=== PATIENT | female | born 1965 | race Caucasian/White ===

== ENCOUNTER 2025-01-20 12:40 | Outpatient (OUT) | payer MEDICARE, SELFPAY ==
--- OUTSIDE RECORDS SUMMARY | 2010-08-06 09:05 | XMS_ITS | Encounter Summary ---
Author Organization [facility] Address [address], [address] [place] [address] Care Team Providers Care Family Psychologist Name Role Phone Unavailable Primary Care Provider Unavailabl e Encounter Details Date Type Department Care Team (Late st Contact Info) Description 08/06/2010 8:05 AM [place] [address] Social History Tobacco Use Types Packs/Day Years Used Date Smoking Tobacco: Never Smokeless Tobacco: Never Alcohol Use Standard Drinks/Week Comments Yes 0 (1 standard drink = 0.6 oz pur e alcohol) social PHQ-2 Answer Date Recorded PHQ-9 Total Score 0 01/09/2023 Comments No Sex and Gender Information Value Date Recorded Sex Assigned at Not on file Legal Sex Female 3:56 PM EST Gender Identity Not on file Sexual Orientation Not on file COVID-19 Exposure Response Date Recorded In the last month, have you been in contact with someone who was confirmed or suspected to have Coronavirus / COVID-19? No / Unsure 07/02/2021 2:40 PM EST documented as of this encounter Plan of Treatment Upcoming Encounters Date Type Department Care Team (Late st Contact Info) Description 02/22/2025 2:00 PM EDT Office Visit [facility] A department of [facility] [address], [place] [address] Sarah Ambrosio, TRACK LAYING MACHINE OPERATOR - WEBBING TACKER [address] [place] [address] 1 m documented as of this encounter Visit Diagnoses Not on filedocumented in this encounter
--- OUTSIDE RECORDS SUMMARY | 2025-01-12 13:45 | XMS_ITS | Encounter Summary ---
Author Organization [facility] Address [address], [address] [place] [address] Care Team Providers Care Excavation Laborer Name Role Phone Unavailable Primary Care Provider Unavailabl e Reason for Visit * Reason Comments Hand Pain both Encounter Details Date Type Department Care Team (Latest Contact Info) Description 01/12/2025 1:45 PM EDT Office Visit [facility] A department of [facility] [address] [place] [address] Sarah Ambrosio, REGIONAL VICE PRESIDENT LIFE SALES - [facility] [address] [place] [address] Chronic prescription opiate use (Primary Dx); Chronic pain of multiple joints; Pain management; Psoriatic arthritis (HCC); Primary osteoarthritis of both knees; Rheumatoid arthritis involving both hands with positive rheumatoid factor (HCC) Social History Tobacco Use Types Packs/Day Years Used Date Smoking Tobacco: Never Smokeless Tobacco: Never Tobacco Cessation:Counseling Given: Not Answered Alcohol Use Standard Drinks/Week Comments Yes 0 (1 standard drink = 0.6 oz pur e alcohol) social PHQ-2 Answer Date Recorded PHQ-9 Total Score 0 01/09/2023 Comments No Sex and Gender Information Value Date Recorded Sex Assigned at Not on file Legal Sex Female 3:56 PM EST Gender Identity Not on file Sexual Orientation Not on file documented as of this encounter Last Filed Vital Signs Vital Sign Reading Time Taken Comments Blood Pressure 102/62 01/12/2025 1:52 PM EDT Pulse 77 01/12/2025 1:52 PM EDT Temperature - - Respiratory Rate 12 01/12/2025 1:52 PM EDT Oxygen Saturation 97% 01/12/2025 1:52 PM EDT Inhaled Oxygen Concentration - - Weight 85.3 kg (188 lb) 01/12/2025 1:52 PM EDT Height 172.7 cm (5' 8 ) 01/12/2025 1:52 PM EDT Body Mass Index 28.59 01/12/2025 1:52 PM EDT documented in this encounter Progress Notes * Sarah Ambrosio, REGIONAL VICE PRESIDENT LIFE SALES - ARMAMENT INSTALLER - 01/13/2025 3:50 PM EDT [facility] [address] [place]. [address] Patient Name: Jackeline Rivera Encounter Date: 01/13/2025 SUBJECTIVE: Jackeline Rivera is a 59 y.o., female being seen today regarding Chief Complaint Patient presents with Hand Pain both and routine medication management. History of Present Illness The patient presents for pain management. She reports that her current medication, Percocet, is effectively managing her pain. However, she experiences discomfort regardless of her activities. Functionality Assessment & Goals: On a scale of 0 (Does not Interfere) to 10 (Completely Interferes) Which number describes how during the past week pain has interfered with the following: A. General Activity: 10 B. Mood: 10 C. Walking Ability: 9 D. Normal Work (Includes both work outside the home and housework): 10 E. Relations with Other People: 8 F. Sleep: 10 G. Enjoyment of Life: 10 2. Patient prefers to Take their Pain Medications: [x] On a regular basis [] Only when necessary [] Does not take pain medications 3. What are the Patient's Goals/ Expectations for Visiting Pain Management? [] Learn about my pain [] Physical Therapy [] Receive Injections [] Deal with Anxiety and Stress [x] Receive Medication [] Treat Depression [] Treat Sleep [] Treat Opioid Dependence/ Addiction Current Pain Assessment: 01/12/2025 1:56 PM AMB PAIN ASSESSMENT Location of Pain Hand Location Modifiers Right;Left Severity of Pain 8 Quality of Pain Throbbing;Sharp;Dull Duration of Pain Persistent Frequency of Pain Constant Aggravating Factors Bending;Stretching;Straightening;Exercise;Kneeling;Squatting;Standing;Walking;St airs Limiting Behavior Yes Relieving Factors Rest Result of Injury No Work-Related Injury No Are there other pain locations you wish to document? No Current Medications & Allergies: Current Outpatient Medications Medication Instructions amoxicillin (AMOXIL) 500 MG capsule Azelastine HCl 137 MCG/SPRAY SOLN baclofen (LIORESAL) 10 MG tablet calcium carbonate 600 mg, 2 TIMES DAILY WITH MEALS clindamycin (CLEOCIN) 300 MG capsule cyanocobalamin 1000 MCG tablet gabapentin (NEURONTIN) 300 mg, Oral, Nightly, Intended supply: 30 days guaiFENesin (MUCINEX) 600 mg, EVERY 12 HOURS PRN hydroxychloroquine (PLAQUENIL) 200 MG tablet DAILY ibuprofen (ADVIL;MOTRIN) 600 MG tablet No dose, route, or frequency recorded. medical marijuana 1 Dose, PRN metoprolol tartrate (LOPRESSOR) 6.25 mg, 2 TIMES DAILY montelukast (SINGULAIR) 10 MG tablet nitroGLYCERIN (NITROSTAT) 0.4 mg, EVERY 5 MIN PRN spironolactone (ALDACTONE) 100 mg, DAILY venlafaxine (EFFEXOR XR) 37.5 MG extended release capsule Allergies Allergen Reactions Cephalexin Itching Duloxetine Diarrhea and Other (See Comments) Flu like symptoms Duloxetine Hcl Diarrhea Fluticasone Other (See Comments) Dry lips and cracking Jean skin around nose Ipratropium-Albuterol Pt unsure of reaction Tocilizumab Adhesive Tape Rash Celecoxib Other (See Comments) and Rash Body aches Ciprofloxacin Nausea Only and Rash Body aches Diclofenac Nausea Only and Rash Ipratropium-Albuterol Rash Meloxicam Hives, Itching and Rash Morphine Nausea And Vomiting Parlodel [Bromocriptine] Rash Sodium Tetradecyl Sulfate Rash Sulfa Antibiotics Rash Sulfamethoxazole-Trimethoprim Nausea Only and Rash Wound Dressing Adhesive Rash Review of Systems: Review of Systems Constitutional: Positive for fatigue, fever (intermittent. possible lupus, never diagnosed) and unexpected weight change (weight loss). HENT: Positive for sore throat. Respiratory: Positive for cough. Cardiovascular: History CHF Gastrointestinal: Negative for constipation and diarrhea. Genitourinary: Negative for difficulty urinating. Musculoskeletal: Positive for arthralgias, gait problem, joint swelling and myalgias. Joint pain Skin: Negative. Allergic/Immunologic: Negative for food allergies. Neurological: Positive for weakness and numbness. Hematological: Does not bruise/bleed easily. Psychiatric/Behavioral: Positive for agitation, decreased concentration and sleep disturbance. OBJECTIVE: Vitals: 01/12/25 1352 BP: 102/62 Pulse: 77 Resp: 12 SpO2: 97% PHYSICAL EXAM Physical Exam Vitals reviewed. Constitutional: General: She is awake. She is not in acute distress. Appearance: Normal appearance. She is well-developed and well-groomed. She is not ill-appearing, toxic-appearing or diaphoretic. Interventions: She is not intubated. HENT: Head: Normocephalic and atraumatic. Right Ear: External ear normal. Left Ear: External ear normal. Eyes: General: Lids are normal. Cardiovascular: Rate and Rhythm: Normal rate. Pulmonary: Effort: Pulmonary effort is normal. No tachypnea, bradypnea, accessory muscle usage, prolonged expiration, respiratory distress or retractions. She is not intubated. Abdominal: Palpations: Abdomen is soft. Skin: General: Skin is warm and dry. Capillary Refill: Capillary refill takes less than 2 seconds. Coloration: Skin is not ashen, jaundiced or pale. Findings: No rash. Nails: There is no clubbing. Neurological: Mental Status: She is alert and oriented to person, place, and time. GCS: GCS eye subscore is 4. GCS verbal subscore is 5. GCS motor subscore is 6. Cranial Nerves: No cranial nerve deficit. Psychiatric: Attention and Perception: Attention and perception normal. Mood and Affect: Mood and affect normal. Speech: Speech normal. Behavior: Behavior is cooperative. Cognition and Memory: Cognition normal. Judgment: Judgment normal. ASSESSMENT: ICD-10-CM 1. Chronic prescription opiate use Z79.891 2. Chronic pain of multiple joints M25.50 DISCONTINUED: oxyCODONE-acetaminophen (PERCOCET) 5-325 MGper tablet G89.29 3. Pain management R52 4. Psoriatic arthritis ([facility]) L40.50 5. Primary osteoarthritis of both knees M17.0 6. Rheumatoid arthritis involving both hands with positive rheumatoid factor ([facility]) M05.741 M05.742 I have reviewed the chief complaint and the history of present illness, vitals and all subjective documentation by [facility] clinical staff. PLAN: Jackeline Rivera is here for a recheck of chronic pain and medication management. Assessment & Plan 1. Pain management. - Reports that Percocet is effectively managing her pain. - Physical activity includes home renovation, which may contribute to pain levels. The patient shows no evidence of misuse or diversion of medications and denies use of alcohol or illegal substances. A urine drug screen has been appropriate as shown with the most recent screen. Controlled Substance Monitoring: Acute and Chronic Pain Monitoring: RX Monitoring Periodic Controlled Substance Monitoring 01/12/2025 2:14 PM No signs of potential drug abuse or diversion identified.;Obtaining appropriate analgesic effect of treatment. SURESH Carey CNP Pain Management [facility] High Complexity Medical Decision Making-Involving chronic use of controlled substance which requires close monitoring for proper use and watching out for misuse and/or addictive behaviors. [place] routinely checked prior to any refills of a controlled substance. Monitoring involves random UDS and monitoring UDS. The patient (or guardian, if applicable) and other individuals in attendance with the patient were advised that Artificial Intelligence will be utilized during this visit to record, process the conversation to generate a clinical note, and support improvement of the AI technology. The patient (or guardian, if applicable) and other individuals in attendance at the appointment consented to the use of AI, including the recording. documented in this encounter Plan of Treatment Upcoming Encounters Date Type Department Care Team (Late st Contact Info) Description 02/22/2025 2:00 PM EDT Office Visit [facility] A department of [facility] [address] [place] [address] Sarah Ambrosio APRN - CNP [address] [place] [address] 1 m documented as of this encounter Visit Diagnoses Diagnosis Chronic prescription opiate use- Primary Chronic pain of multiple joints Pain in joint, multiple sites Pain management Other specified rehabilitation procedure Psoriatic arthritis (HCC) Psoriatic arthropathy Primary osteoarthritis of both knees Primary localized osteoarthrosis, lower leg Rheumatoid arthritis involving both hands with positive rheumatoid factor (HCC) documented in this encounter
--- OUTSIDE RECORDS SUMMARY | 2025-01-20 12:49 | XMS_ITS | Clinical Summary ---
Author Organization [facility] Address [address] [place] [id number] Care Team Providers Care Healthcare Recruiter Name Role Phone (Historical), No Pcp Primary Care Provider Unava ilable Allergies Active Allergy Reactions Criticality Noted Date Comments Bromocriptine Rash 10/17/2008 Diclofenac Rash 10/17/2008 Celecoxib Rash 10/17/2008 Ciprofloxacin Rash 10/17/2008 Ipratropium-Albuterol Rash 10/17/2008 Fluticasone Propionate Rash 10/17/2008 no latex allergy [Other] 10/17/2008 Medications HYDRALAZINE 25 MG TAB take one(1) tablet three (3) times daily 90 2 10/31/2008 Active potassium chloride(K-DUR 20 MEQ TAB) Take one(1) tablet daily. 5 0 01/11/2009 Active doxazosin mesylate(CARDURA 2 MG TAB)Indications:U nspecified essential hypertension Take two (2) tablet two(2) times daily. 120 5 02/01/2009 Active doxazosin mesylate(CARDURA 2 MG TAB)Indications:U nspecified essential hypertension Take one(1) tablet two(2) times daily. 60 5 03/08/2009 Active spironolactone(AL DACTONE 50 MG TAB)Indications:U nspecified essential hypertension Take one(1) tablet two(2) times daily. 200 3 03/08/2009 Active Active Problems Problem Noted Date Diagnosed Date Mitral valve disorders(424.0) 10/19/2008 Unspecified essential hypertension 10/19/2008 PMH - PAST MEDICAL HISTORY OF 10/19/2008 Overview (10/19/2008): h/o liver cyst and inflammation Family History Medical History Relation Comments Hepatitis [Other] Brother Living - age 4 9 Heart Father at age 70 - CHF, HTN Hypertension Mother Living -age 71 - carotid ASO, glaucoma Stroke Other Great grandmothe r with brain aneurysm Stroke Sister Living - age 46 - h/o brain aneurysm and CVA Thyroid Sister Hyperactive thyr oid Relation Status Comments Brother Father Mother Other Sister Social History Tobacco Use Types Packs/Day Years Used Date Smoking Tobacco: Never Alcohol Use Standard Drinks/Week Comments Yes 0 (1 standard drink = 0.6 oz pur e alcohol) 3-4 drinks per month Comments No Sex and Gender Information Value Date Recorded Sex Assigned at Not on file Legal Sex Female 8:19 AM EST Gender Identity Not on file Sexual Orientation Not on file Last Filed Vital Signs Vital Sign Reading Time Taken Comments Blood Pressure 146/86 01/11/2009 1:47 PM EDT Pulse 100 01/11/2009 1:47 PM EDT Temperature - - Respiratory Rate - - Oxygen Saturation - - Inhaled Oxygen Concentration - - Weight 93.5 kg (206 lb 3.2 oz) 01/11/2009 1:47 P M EDT Height 171 cm (5' 7.32 ) 10/19/2008 12:41 PM EDT Body Mass Index 31.99 10/19/2008 12:41 PM EDT Plan of Treatment Health Maintenance Due Date Last Done Comments Anxiety Screening 12/18/1981 Depression Screening 12/18/1981 HIV Screening 12/18/1981 Hepatitis C Screening 12/18/1981 DTaP,Tdap,Td Vaccine (1 - Tdap) 12/18/1982 Cervical Cancer Screening 12/18/[address] Colonography 12/18/2008 Cologuard (FIT-DNA) 12/18/2008 Colonoscopy 12/18/2008 Colorectal Cancer Screening 12/18/2008 Fecal Occult Blood 12/18/2008 Sigmoidoscopy 12/18/2008 Diabetes Screening 10/20/2011 10/19/2008 Lipid Screening 10/19/2013 10/19/2008 Pneumococcal Vaccine: 50+ (1 of 1 - PCV) 12/18/2013 Shingrix Vaccine (1 of 2) 12/18/2013 Influenza Vaccine (#1) 2025 RSV Vaccine (1 - 1-dose 75+ series) 12/18/2038 Procedures Procedure Name Priority Date/Time Associated Diagnosis Comments COMPREHENSIVE METABOLIC PANEL Routine 10/19/2008 6:14 PM EDT Abdominal Pain Epigastric LIPID PANEL, FASTING Routine 10/19/2008 6:14 PM EDT Abdominal Pain Epigastric from Last 3 Months or Most Recently Relevant to Health Maintenance Results * (ABNORMAL) LIPID PANEL BASIC (10/19/2008 6:14 PM EDT) Triglyceride 236(H) 30 - 149 mg/dL [facility] Cholesterol, Total 227(H) 100 - 199 mg/dL [facility] HDL Cholesterol 47(L) >55 mg/dL [facility] VLDL Cholesterol 47(H) 6 - 40 mg/dL [facility] LDL Cholesterol, Calculated 133(H) 60 - 129 mg/dL [facility] Fasting Time 12 hrs [facility] TC:HDL Ratio 4.83 1.00 - 5.00 [facility] LDL:HDL Ratio 2.83 0.50 - 3.55 [facility] Non HDL Cholesterol 180(H) 90 - 159 mg/dL [facility] Blood specimen (specimen) BLOOD SPECIMEN / Unknown 10/19/2008 6:14 PM EDT us Dennise Sepulveda MD, PhD LABORATORY Final Result Performing Organization Address City/State/[facility] Co de Phone Number [facility] [address] [place] [address] * COMP METABOLIC PANEL (10/19/2008 6:14 PM EDT) Protein, Total 6.5 6.0 - 8.4 g/dL [facility] Albumin 4.3 3.5 - 5.0 g/dL [facility] Calcium 9.0 8.5 - 10.5 mg/dL [facility] Bilirubin, Total 0.7 0.0 - 1.5 mg/dL [facility] Alkaline Phosphatase 63 40 - 150 U/L [facility] AST 23 7 - 40 U/L [facility] Glucose 85 65 - 100 mg/dL [facility] BUN 10 8 - 25 mg/dL [facility] Creatinine 0.73 0.70 - 1.40 mg/dL [facility] Sodium 140 132 - 148 mmol/L [facility] Potassium 3.6 3.5 - 5.0 mmol/L [facility] Chloride 100 98 - 110 mmol/L [facility] CO2 27 23 - 32 mmol/L [facility] Anion Gap 13 0 - 15 mmol/L [facility] ALT 20 0 - 45 U/L [facility] eGFR- >60 [facility] eGFR-All Other Races >60 . [facility] Comment: eGFR (Estimated GFR) Units of measure: mL/min/1.73 meters squared eGFR is derived from the reexpressed MDRD Study equation using the following parameters: serum creatinine, age, gender and race. The creatinine assay has been calibrated to be traceable to IDMS. An eGFR <60 mL/min/1.73m2 for >3 months is consistent with chronic kidney disease. Refer to KDOQI guidelines for clinical interpretation. Blood specimen (specimen) BLOOD SPECIMEN / Unknown 10/19/2008 6:14 PM EDT Dennise Sepulveda MD, PhD LABORATORY Final Result [facility] [address] [place] [address] from Last 3 Months or Most Recently Relevant to Health Maintenance Insurance CHOICE PLUS BLUE CARD PPO OOS Care Teams Healthcare Recruiter Relationship Specialty Start Date End Date (Historical), No Pcp PCP - General 11/15/14
--- OUTSIDE RECORDS SUMMARY | 2025-01-20 12:49 | XMS_ITS | Clinical Summary ---
Author Organization [facility] Address [address] [place] [address] Care Team Providers Care Wire Harness Assembler Name Role Phone Etienne Yeboah MD Primary Care Provider [phone] Allergies Active Allergy Reactions Criticality Noted Date Comments Adhesive Rash Low 10/17/2008 Beta-Adrenergic Agents Dizziness 11/11/2023 Hypotension Bromocriptine Rash Low 10/17/2008 Candy Apple Flavor Anaphylaxis High 04/17/2023 Celecoxib Rash Low 10/17/2008 Other Reaction(s): Other (See Comments) Body aches Cephalexin Itching 02/17/2022 Ciprofloxacin 05/19/2014 Other reaction(s): other Diclofenac GI intolerance,Nause a Only,Rash Low 10/17/2008 Diltiazem Headache 03/02/2024 Duloxetine Diarrhea 02/17/2022 Fluticasone Propionate 05/19/2014 Other reaction(s): other Meloxicam Hives,Itching,Rash Low 11/13/2021 Other Reaction(s): itch/rash Morphine 02/17/2022 Other reaction(s): vomiting Sulfa (Sulfonamide Antibiotics) 05/19/2014 Other reaction(s): other Sulfamethoxazole-Trimet hoprim GI intolerance,Rash Low 07/20/2012 Tocilizumab 02/17/2022 Medications albuterol 90 mcg/actuation inhaler Inhale 2 puffs as needed by inhalation route. Active cyanocobalamin (Vitamin B-12) 1,000 mcg/mL injection Inject 1 ml intramuscularly daily for 7 days, then once weekly for 4 weeks, then once monthly. Active spironolactone (Aldactone) 100 mg tablet Take 50 mg by mouth in the morning. Active buprenorphine (Butrans) 5 mcg/hour 08/06/19 23 Active HYDROcodone-gabo taminophen ([place]) 5-325 mg tablet 08/05/19 23 Active oxyCODONE-aceta minophen (Percocet) 5-325 mg tablet 04/09/20 23 Active baclofen (Lioresal) 10 mg tablet 06/29/19 24 Active hydroxychloroqu ine (Plaquenil) 200 mg tabletIndicatio ns:Seronegative rheumatoid arthritis (CMS/HCC) Take 1 tablet every day by oral route. 90 tablet 3 10/07/19 24 Active clindamycin (Cleocin) 300 mg capsule 01/19/20 24 Active dilTIAZem CD (Cardizem CD) 120 mg 24 hr capsule 11/11/19 24 Active metoprolol tartrate (Lopressor) 25 mg tablet Take 12.5 mg by mouth two times daily. 03/03/20 24 Active magnesium glycinate 100 mg tablet Take 100 mg by mouth in the morning. Active nitroglycerin (Nitrostat) 0.4 mg SL tablet 12/28/19 24 Active arm brace (GABO Elbow Brace) miscIndications :Seronegative rheumatoid arthritis (CMS/HCC),Fibro myalgia,Hammert oe of left foot,Golfers elbow, unspecified laterality Elbow strap bilateral, apply to the elbows for tennis elbow 2 each 03/30/20 24 Active gabapentin (Neurontin) 300 mg capsule 07/27/19 25 Active azelastine (Astelin) 137 mcg (0.1 %) nasal spray 04/14/20 24 Active montelukast (Singulair) 10 mg tablet Take 10 mg by mouth in the morning. 09/14/19 25 Active amoxicillin (Amoxil) 500 mg capsule 07/25/19 25 Active abacavir (Ziagen) 20 mg/mL solution Take 8 mg/kg by mouth two times daily. 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 Nausea 03/16/2024 Urinary tract infectious disease 03/16/2024 Dyspnea on exertion 12/28/2023 NSVT (nonsustained ventricular tachycardia) 11/30 Other fatigue 12/28/2023 Palpitations 12/28/2023 Precordial pain 12/28/2023 SVT (supraventricular tachycardia) 12/28/2023 Hammertoe of left foot 09/18/2023 Fibromyalgia 01/02/2023 Rheumatoid arthritis 01/02/2023 S/P total right hip arthroplasty 12/10/2021 Chronic pain of multiple joints 06/20/2021 Primary osteoarthritis of both knees 06/20/2021 Psoriatic arthritis 06/20/2021 Rheumatoid arthritis involvi ng both hands with positive rheumatoid factor 06/20/2021 CHF (congestive heart failure) 03/14/2020 COVID-19 03/14/2020 Glaucoma 03/14/2020 Osteoporosis 05/30/2013 Endometriosis 07/26/2012 Essential hypertension 10/19/2008 Immunizations Immunization Administration Dates Next Due Influenza, seasonal, injecta ble, preservative free, 6 moonths & older 03/21/2011 Pneumococcal Polysaccharide PPV23 03/21/2011 Tdap 01/28/2016 Unspecified Sars-Cov-2 Vaccination 05/08,09/29/2020,09/26/2020,08/30,08/29/2020 Family History Medical History Relation Name Comments Drug abuse Brother 1 Asher clara Hypertension Brother 1 Asher clara Kidney disease Brother 2 Don clara Arthritis Father Jakob clara Cancer Father Jakob clara Diabetes Father Jakob clara Hearing loss Father Danforth clara Heart disease Father Jakob clara Hypertension Father Jakob clara Vision loss Father Danforth clara Arthritis Mother Gaston clara Asthma Mother Gaston clara COPD Mother Gaston clara Cancer Mother Gaston clara Hypertension Mother Gaston clara Vision loss Mother Gaston clara Stroke Sister 1 Colleen narinder Cancer Sister 2 Carlota amador Relation Name Status Comments Brother 1 Asher clara Brother 2 Don clara Father Jakob clara Mother Gaston clara Sister 1 Colleen narinder Sister 2 Carlota amador Social History Tobacco Use Types Packs/Day Years Used Date Smoking Tobacco: Never Smokeless Tobacco: Never Tobacco Cessation:Counseling Given: Not Answered Alcohol Use Standard Drinks/Week Comments Yes 0 (1 standard drink = 0.6 oz pure alcohol) Mayb 2 to 4 shots whiskey mo. Not daily PHQ-2 Answer Date Recorded Patient Health Questionnaire-2 Score 0 09/28/2024 [place] Safety & Environment Answer Date Rec orded Fear of Current or Ex-Partner Not on file Emotionally Abused Not on file 07/23/2023 Physically Abused Not on file 07/23/2023 Sexually Abused Not on file 07/23/2023 Physically or Sexually Abused Not on file Comments Unknown Sex and Gender Information Value Date Recorded Sex Assigned at Not on file Legal Sex Female 11:11 PM EDT Gender Identity Not on file Sexual Orientation Not on file Last Filed Vital Signs Vital Sign Reading Time Taken Comments Blood Pressure 102/75 09/28/2024 10:47 AM EDT Pulse 68 09/28/2024 10:47 AM EDT Temperature 36.4 C (97.6 F) 03/14/2020 2:37 PM EDT Respiratory Rate 16 05/02/2019 2:50 PM EST Oxygen Saturation 98% 06/07/2021 1:46 PM EST Inhaled Oxygen Concentration - - Weight 87.1 kg (192 lb) 09/28/2024 10:47 AM EDT Height 172.7 cm (5' 8 ) 03/30/2024 10:03 AM EDT Body Mass Index 29.19 03/30/2024 10:03 AM EDT Plan of Treatment Upcoming Encounters Date Type Department Care Team (Late st Contact Info) Description 01/27/2025 1:00 PM EDT Follow-Up [facility] Rheumatology [address] [place] [address] Sylvester Lee MD [address] [place] [address] Health Maintenance Due Date Last Done Comments CT Colonography 1963 Colonoscopy 1963 Colorectal Cancer Screening 1965 FIT-DNA 1963 FIT 1963 FOBT 1965 Medicare Annual Wellness (AWV) 1965 Sigmoidoscopy 1963 HPV/Cotest 12/18/1993 Pneumococcal Vaccine: Pediatrics (0 to 5 Years) and At-Risk Patients (6 to 64 Years) (2 of 2 - PCV) 03/21/2012 03/21/2011 Zoster Vaccines (1 of 2) 12/18/2013 Mammogram 08/20/2014 08/20/2012 Cervical Cancer Screening 07/26/2015 Pap Smear 07/26/2015 07/26/2012 COVID-19 Vaccine ( season) 2024 05/08/2021, 05/08/2021, 09/29/2020, Additional history exists Influenza Vaccine (#1) 2025 03/21/2011 Depression Screening 09/28/2025 09/28/2024 Adult Tetanus 01/27/2026 01/28/2016 HIB Vaccines Aged Out No longer eligi ble based on patient's age to complete this topic HPV Vaccines Aged Out No longer eligi ble based on patient's age to complete this topic IPV Vaccines Aged Out No longer eligi ble based on patient's age to complete this topic Meningococcal B Vaccine Aged Out No l onger eligible based on patient's age to complete this topic Meningococcal Vaccine Aged Out No alma manish eligible based on patient's age to complete this topic Rotavirus Vaccines Aged Out No longer eligible based on patient's age to complete this topic Insurance [employer] MEDICARE ADVANTAGE Care Teams Wire Harness Assembler Relationship Specialty Start Date End Date Etienne Yeobah MD [address] [place] [id number] PCP - General 12/31/22
--- OUTSIDE RECORDS SUMMARY | 2025-01-20 12:50 | XMS_ITS | Encounter Summary ---
Author Organization [facility] Address [id number] [address] [place] [address] Care Team Providers Care Deputy Sheriff Court Services Name Role Phone Edilia Del Cid DO, Charles L Primary Care Provider Encounter Details Date Type Department Care Team (Late st Contact Info) Description 08/26/2023 Orders Only [facility] [address] [facility] [address] [place] [address] External, Scanning Provider Social History Tobacco Use Types Packs/Day Years Used Date Smoking Tobacco: Never Smokeless Tobacco: Never Comments:Medical Marijuana. Every night Alcohol Use Standard Drinks/Week Comments Not Currently 0 (1 standard drink = 0.6 oz pur e alcohol) Social Connection and Isolat ion Panel [NHANES] Answer Date Recorded In a typical week, how many times do you talk on the phone with family, friends, or neighbors? More than three times a week 12/10/2021 How often do you get togethe r with friends or relatives? Twice a week 12/10/2021 How often do you attend chur ch or episcopal services? 1 to 4 times per year 12/10/2021 Do you belong to any clubs o r organizations such as scientology groups, unions, fraternal or athletic groups, or school groups? No 12/10/2021 How often do you attend meet ings of the clubs or organizations you belong to? Never 12/10/2021 Are you , , di vorced, , never , or living with a partner? 12/10/2021 AUDIT-C Answer Date Recorded Q1: How often do you have a drink containing alc ohol? 2-4 times a month 12/10/2021 Q2: How many drinks containi ng alcohol do you have on a typical day when you are drinking? 3 or 4 12/10/2021 Q3: How often do you have si x or more drinks on one occasion? Never 12/10/2021 Overall Financial Resource Strain (CARDIA) Answe r Date Recorded How hard is it for you to pa y for the very basics like food, housing, medical care, and heating? Not hard at all 12/10/2021 PHQ-2 Answer Date Recorded Total Score 0 12/10/2021 [facility] - Occupational Stress Questionnaire Answer Date Recorded Do you feel stress - tense, restless, nervous, or anxious, or unable to sleep at night because your mind is troubled all the time - these days? Not at all 12/10/2021 Exercise Vital Sign Answer Date Recorde d On average, how many days pe r week do you engage in moderate to strenuous exercise (like a brisk walk)? 7 days 12/10/2021 On average, how many minutes do you engage in exercise at this level? 30 min 12/10/2021 PRAPARE - Transportation Answer Date Re corded In the past 12 months, has l ack of transportation kept you from medical appointments or from getting medications? No 11/29 In the past 12 months, has l ack of transportation kept you from meetings, work, or from getting things needed for daily living? No 12/10/2021 Childcare Answer Date Recorded Do problems getting child ca re make it difficult for you to work or study? No 12/10/2021 Employment Answer Date Recorded Do you need help finding a [facility] and/or a training program? No 12/10/2021 Purpose - Life Answer Date Recorded I have a purpose and direction in my life. Agree 12/10/2021 Comments No Sex and Gender Information Value Date Recorded Sex Assigned at Not on file Legal Sex Female 11:48 AM EDT Gender Identity Not on file Sexual Orientation Not on file documented as of this encounter Plan of Treatment Not on file documented as of this encounter Goals Goal Patient Goal Type Associated Problems Recent Progress Patient-Stated? Author Home General Yes Giuliana Montgomery LSW Note: Evaluation of progress towards goal: Home with family support and [facility] PT 360 documented as of this encounter Procedures Procedure Name Priority Date/Time Associated Diagnosis Comments ECG 12-LEAD Routine 11/26/2021 ECHO COMPLETE WO CONTRAST Routine 12/20/2019 ECHO STRESS TREADMILL WITHOU T CONTRAST WITH COLOR FLOW AND DOPPLER Routine 12/08/2019 ECG 12-LEAD Routine 10/01/2019 documented in this encounter Results * ECG 12 lead (11/26/2021) us Scanning Provider External ECG ORDERABLES Final Result Performing Organization Address [facility] [address] [facility] de Phone Number MANUALLY TRANSCRIBED RESULTS * Echo complete W/O contrast (12/20/2019) Anatomical Region Laterality Modality Chest N/A Ultrasound us Scanning Provider External CV ECHO ORDERABLES Ed ited Result - Final * Echo stress treadmill W/O contrast with Color Flow and Doppler (12/08/2019) Anatomical Region Laterality Modality Chest N/A Other us Scanning Provider External CV STRESS ORDERABLES Final Result * ECG 12 lead (10/01/2019) us Scanning Provider External ECG ORDERABLES Final Result Performing Organization Address [facility] [address]/[facility] de Phone Number MANUALLY TRANSCRIBED RESULTS documented in this encounter Visit Diagnoses Not on filedocumented in this encounter Additional Health Concerns Assessment Noted Time PHQ-9 Depression Total Score: 0 12/11/19 22 12:34 PM EDT documented as of this encounter Care Teams Deputy Sheriff Court Services Relationship Specialty Start Date End Date Etienne Yeboah Jr., DO [address] [place] [id number] PCP - General Internal Medicine 06/19/17 documented as of this encounter
--- OUTSIDE RECORDS SUMMARY | 2025-01-20 12:50 | XMS_ITS | Encounter Summary ---
Author Organization [facility] tem Address [id number] [address] [place] [address] Care Team Providers Care Stagecraft Professor Name Role Phone Edilia Del Cid DO, Charles L Primary Care Provider Encounter Details Date Type Department Care Team (Late st Contact Info) Description 12/04/2020 Orders Only [facility] [address] [place] [phone] Alexsandra Foss CNA Hip pain, right (Primary Dx) Social History Tobacco Use Types Packs/Day Years Used Date Smoking Tobacco: Never Assessed Childcare Answer Date Recorded Childcare Unknown 11/10/2018 Employment Answer Date Recorded Employment Unknown 11/10/2018 Purpose - Life Answer Date Recorded Purpose and direction in life Unknown Comments No Sex and Gender Information Value Date Recorded Sex Assigned at Not on file Legal Sex Female 11:48 AM EDT Gender Identity Not on file Sexual Orientation Not on file documented as of this encounter Plan of Treatment Not on file documented as of this encounter Results * X-ray hip right 2-3 views with or without pelvis (12/20/2020 11:00 AM EDT) Anatomical Region Laterality Modality Hip Right Computed Radiogr aphy 12/20/2020 5:26 PM EDT Narrative 12/20/2020 5:26 PM EDT CLINICAL INFORMATION: Hip pain, right TECHNIQUE: XR HIP RT 2-3 VIEWS W OR WO PELVIS Right hip: HISTORY: Right hip pain. 3 views the right hip were obtained. Moderate right hip osteoarthritic changes are noted with subchondral sclerosis and osteophytes. No obvious fractures seen. Sacral alar appear intact. IMPRESSION: Right hip osteoarthritis. Finalized by Jose Hill MD on 12/20/2020 5:26 PM Procedure Note Jose Hill MD - 12/20/2020 CLINICAL INFORMATION: Hip pain, right TECHNIQUE: XR HIP RT 2-3 VIEWS W OR WO PELVIS Right hip: HISTORY: Right hip pain. 3 views the right hip were obtained. Moderate right hip osteoarthriticchanges are noted with subchondral sclerosis and osteophytes. No obviousfractures seen. Sacral alar appear intact. IMPRESSION: Right hip osteoarthritis. Finalized by Jose Hill MD on 12/20/2020 5:26 PM us Alfredo Wild MD IMG DIAGNOSTIC IMAGING ORDERABLE S Final Result documented in this encounter Visit Diagnoses Diagnosis Hip pain, right- Primary Pain in joint, pelvic region and thigh Hip pain, right Pain in joint, pelvic region and thigh documented in this encounter Care Teams Stagecraft Professor Relationship Specialty Start Date End Date Etienne Yeboah Jr., [address] [place] [address] PCP - General Internal Medicine 06/19/17 documented as of this encounter
--- OUTSIDE RECORDS SUMMARY | 2025-01-20 12:50 | XMS_ITS | Clinical Summary ---
Author Organization [facility] Address [id number] [address] [place] [address] Care Team Providers Care Station Engineer Name Role Phone Edilia Del Cid DO, Charles L Primary Care Provider Allergies Active Allergy Reactions Criticality Noted Date Comments Adhesive Rash Low 11/13/2021 Beta-Adrenergic Agents Dizziness 11/11/2023 Hypotension Bromocriptine Rash Low 10/17/2008 Candy Apple Flavor Anaphylaxis High 04/17/2023 Celecoxib Other (See Comments),Rash Low 10/17/2008 Body aches Other Reaction(s): Other (See Comments) Body aches Cephalexin Itching 12/20/2020 Ciprofloxacin Hcl Other (See Comments) 12/21/19 Flu Symtoms Ciprofloxacin GI Disturbance,Other (See Comments),Rash Low 10/17/2008 Body aches Duloxetine Other (See Comments) 11/13/2021 Flu like symptoms Diclofenac GI Disturbance,Rash Low 10/17/2008 Diltiazem Headache 03/02/2024 Fluticasone Other (See Comments) 12/20/2020 Jean skin around nose Ipratropium-Albuterol Rash Low 10/17/2008 Pt unsure of reaction Meloxicam Hives,Itching,Rash Low 11/13/2021 Morphine Vomiting 12/20/2020 Sodium Tetradecyl Sulfate Rash Low 12/20/2020 Sulfa (Sulfonamide Antibiotics) Rash Low 11/13/2021 Sulfamethoxazole-Trimet hoprim GI Disturbance,Rash Low 07/20/2012 Tocilizumab 02/01/2020 Ezetimibe Swelling,Rash Low 09/05/2024 Medications spironolactone (ALDACTONE) 50 mg tablet Take 1 tablet (50 mg total) by mouth in the morning. Active hydrOXYchloroQU INE (PLAQUENIL) 200 mg tablet Take 1 tablet (200 mg total) by mouth in the morning and 1 tablet (200 mg total) before bedtime. Active guaiFENesin (MUCINEX) 600 mg tablet extended release 12hr Take 1 tablet (600 mg total) by mouth every 12 (twelve) hours as needed. Active cyanocobalamin, vitamin B-12, (B-12 COMPLIANCE) 1,000 mcg/mL kit Inject 1,000 mcg as directed every 28 days. Active nitroglycerin (NITROSTAT) 0.[address] 1 tablet (0.4 mg total) under the tongue every 5 (five) minutes as needed for chest pain. Active albuterol (PROVENTIL HFA;VENTOLIN HFA) 90 mcg/actuation inhaler Inhale 2 puffs every 6 (six) hours as needed for wheezing. Active medical marijuana marijuana (cannabis) PRN Active ibuprofen (MOTRIN) 600 mg tablet Take 1 tablet (600 mg total) by mouth every 12 (twelve) hours as needed for pain. Active calcium carbonate/vitam in D3 (CALCARB 600 WITH VITAMIN D ORAL) Take 500 mg by mouth in the morning. Active metoprolol tartrate (LOPRESSOR) 25 mg tablet Take 0.5 tablets (12.5 mg total) by mouth in the morning and 0.5 tablets (12.5 mg total) before bedtime. 180 tablet 3 4 Active gabapentin (NEURONTIN) 300 mg capsule Take 1 capsule (300 mg total) by mouth 2 (two) times a day as needed. 5 Active Active Problems Problem Noted Date Diagnosed Date Palpitations 12/28/2023 Precordial pain 12/28/2023 Other fatigue 12/28/2023 SVT (supraventricular tachycardia) 12/28/2023 Primary hypertension 12/28/2023 Dyspnea on exertion 12/28/2023 NSVT (nonsustained ventricular tachycardia) 11/30 S/P total right hip arthroplasty 12/10/2021 Family History Medical History Relation Name Comments Arthritis Father Heart disease Father Prostate cancer Father Arthritis Mother COPD Mother Clotting disorder Mother Lung cancer Mother Vision loss Mother Multiple sclerosis Sister Relation Name Status Comments Father Mother Sister Social History Tobacco Use Types Packs/Day Years Used Date Smoking Tobacco: Never Passive Smoke Exposure: Past Smokeless Tobacco: Never Tobacco Cessation:Counseling Given: Not Answered Comments:Medical Marijuana. Every night Alcohol Use Standard [...] 12/10/2021 How often do you attend chur or baptist services? 1 to 4 times per year 12/10/2021 Do you belong to any clubs o r organizations such as jew groups, unions, fraternal or athletic groups, or [...] Answer Date Recorded Total Score 0 12/10/2021 [facility] Occupat ional Health - Occupational Stress [...] Recorded Do you need help finding a [employer] career center and/or a training program? No [...] Sign Reading Time Taken Comments Blood Pressure 100/72 09/05/2024 1:28 PM EDT Pulse 71 09/05/2024 1:28 PM EDT Temperature 36.8 C (98.3 F) 12/11/2021 7:18 AM EDT Respiratory Rate 16 12/25/2023 1:15 PM EDT Oxygen Saturation 99% 03/03/2024 2:56 PM EDT Inhaled Oxygen Concentration - - Weight 87.1 kg (192 lb) 09/05/2024 1:28 PM EDT Height 170.2 cm (5' 7.01 ) 09/05/2024 1:28 PM ED T Body Mass Index 30.06 09/05/2024 1:28 PM EDT Plan of Treatment Health Maintenance Due Date Last Done Comments Depression Screening 1975 Adult BMI Follow Up Plan 12/18/1981 Zoster (Shingles) Vaccine (1 of 2) 12/18/2013 COVID-19 Vaccine (2023-2 5 season) 2024 05/08/2021, 09/29/2020, 09/26/2020, Additional history exists Influenza Vaccine 01/30/2025 03/21/2011 Adult BMI Screening 09/05/2025 09/05/2024 Tobacco Screening 09/05/2025 09/05/2024 DTaP,Tdap and Td Vaccines (2 - Td or Tdap) 01/27/2026 01/28/2016 Pap Smear Discontinued 07/26/2012 Goals Goal Patient Goal Type Associated Problems Recent Progress Patient-Stated? Author Home General Yes Giuliana Montgomery LSW Note: Evaluation of progress towards goal: Home with family support and NOMS PT 360 Medical Devices Implanted Type Area Sample Selector Device Identifier Shelf Expiration Date Model / Serial / Lot Cup Actb 52mm Pncl Sect Hip - [id number] - [id number] Implanted:Qty : 1 on 12/10/2021 by Patel Sumner Jr., DO at [facility] Orthopedic Implant Right: Hip [employer] [id number] 09/11/2031 [id number] / [id number] / [id number] Liner Actb 52mm 36mm Ntrl +4 - [id number] - [id number] Implanted:Qty : 1 on 12/10/2021 by Patel Sumner Jr., DO at [facility] Orthopedic Implant Right: Hip [employer] [id number] 10/10/2025 [id number] / [id number] / [id number] Hip Dep Pf Cerm/Cerm Construct - Sna - [id number] Implanted:Qty : 1 on 12/10/2021 by Patel Sumner Jr., DO at [facility] Orthopedic Implant Right: Hip [employer] DEP-14 / NA / NA Elminator Hl Drlc Pncl Hip Mrthn - [id number] - [id number] Implanted:Qty : 1 on 12/10/2021 by Patel Sumner Jr., DO at [facility] Other Implant Right: Hip [employer] [id number] 07/13/2031 [id number] / [id number] / [id number] Head Fem Cer Delta 05/14 36mm +5 - [id number] - [id number] Implanted:Qty : 1 on 12/10/2021 by Patel Sumner Jr., DO at [facility] Other Implant Right: Hip [employer] [id number] 07/29/2026 [id number] / [id number] / [id number] Description:HEAD FEMORAL CER AMIC DELTA 05/14 36MM +5 - [id number] - [id number] Screw Hip Canc Cnn Gription 25mm - [id number] - [id number] Implanted:Qty : 1 on 12/10/2021 by Patel Sumner Jr., DO at [facility] Screw Right: Hip [employer] [id number] 09/11/2031 [id number] / [id number] / [id number] Corail Hip System Cementless Femoral Stem Size 11 High Offset Collar Implanted:Qty : 1 on 12/10/2021 by Patel Sumner Jr., DO at [facility] Right: Hip [employer] 12/29/2024 [id number] / [id number] / [id number] Description:Corail Hip syste m cementless femoral stem size 11 high offset collar Insurance [address] [address] MEDICARE Advance Directives * Full Code (Latest Code Status on File) Date Activated Date Inactivated Comments 12/10/2021 7:27 AM 12/11/2021 3:10 PM Care Teams Station Engineer Relationship Specialty Start Date End Date Etienne Yeboah Jr., DO [address] [place] [id number] PCP - General Internal Medicine 06/19/17
--- OUTSIDE RECORDS SUMMARY | 2025-01-20 12:50 | XMS_ITS | Clinical Summary ---
Author Organization [facility] Address [address], [address] [place] [address] Care Team Providers Care Fence Repairman Name Role Phone Unavailable Primary Care Provider Unavailabl e Allergies Active Allergy Reactions Criticality Noted Date Comments Adhesive Tape Rash Low 10/17/2008 Celecoxib Other (See Comments),Rash Low 10/17/2008 Body aches Cephalexin Itching 12/20/2020 Ciprofloxacin Nausea Only,Rash Low 10/17/2008 Body aches Diclofenac Nausea Only,Rash Low 10/17/2008 Duloxetine Diarrhea,Other (See Comments) 11/13/2021 Flu like symptoms Duloxetine Hcl Diarrhea 02/10/2023 Fluticasone Other (See Comments) 07/20/2012 Dry lips and cracking Jean skin around nose Ipratropium-Albuterol 07/20/2012 Pt unsure of reaction Ipratropium-Albuterol Rash Low 10/17/2008 Meloxicam Hives,Itching,Rash Low 11/13/2021 Morphine Nausea And Vomiting Low 12/20/2020 Bromocriptine Rash Low 07/20/2012 Sodium Tetradecyl Sulfate Rash Low 12/20/2020 Sulfa Antibiotics Rash Low 12/20/2021 Sulfamethoxazole-Trimeth oprim Nausea Only,Rash Low 07/20/2012 Tocilizumab 02/01/2020 Wound Dressing Adhesive Rash Low 10/17/2008 Medications nitroGLYCERIN (NITROSTAT) 0.[address] 1 tablet under the tongue every 5 minutes as needed Active calcium carbonate 1500 (600 Ca) MG TABS tablet Take 1 tablet by mouth 2 times daily (with meals) Active spironolactone (ALDACTONE) 100 MG tablet Take 1 tablet by mouth daily Takes if systolic is 95 or above Active hydroxychloroqu ine (PLAQUENIL) 200 MG tablet Take by mouth daily Active medical marijuana Inhale 1 Dose into the lungs as needed. Active cyanocobalamin 1000 MCG tablet Acti ve ibuprofen (ADVIL;MOTRIN) 600 MG tablet 2 Active guaiFENesin (MUCINEX) 600 MG extended release tablet Take 1 tablet by mouth every 12 hours as needed Active baclofen (LIORESAL) 10 MG tablet 4 Active clindamycin (CLEOCIN) 300 MG capsule 4 Active metoprolol tartrate (LOPRESSOR) 25 MG tablet Take 0.25 tablets by mouth 2 times daily Pt states that she is taking a / twice 4 Active Azelastine HCl 137 MCG/SPRAY SOLN 4 Active montelukast (SINGULAIR) 10 MG tablet 4 Active amoxicillin (AMOXIL) 500 MG capsule 5 Active gabapentin (NEURONTIN) 300 MG capsule Take 1 capsule by mouth at bedtime for 30 days. Intended supply: 30 days 30 capsule 5 5 Active venlafaxine (EFFEXOR XR) 37.5 MG extended release capsule 5 Active oxyCODONE-aceta minophen (PERCOCET) 5-325 MG per tabletIndicatio ns:Chronic pain of multiple joints Take 1 tablet by mouth 2 times daily as needed for Pain for up to 30 days. Max Daily Amount: 2 tablets 60 tablet 5 01/13/20 25 Discontinu ed(REORDER ) oxyCODONE-aceta minophen (PERCOCET) 5-325 MG per tabletIndicatio ns:Chronic pain of multiple joints Take 1 tablet by mouth 2 times daily as needed for Pain for up to 30 days. Max Daily Amount: 2 tablets 60 tablet 5 01/14/20 25 Discontinu ed(Availab ility) Active Problems Problem Noted Date Diagnosed Date Pain management 07/27/2024 Chronic prescription opiate use 07/27/2024 Rheumatoid arthritis involvi ng both hands with positive rheumatoid factor 06/20/2021 Chronic pain of multiple joints 06/20/2021 Primary osteoarthritis of both knees 06/20/2021 Psoriatic arthritis 06/20/2021 Endometriosis 07/26/2012 Encounters Date Type Department Care Team Description 01/12/2025 1:45 PM EDT Office Visit [facility] [address] [place] [facility] [place] [address] Sarah Ambrosio APRN - CNP Chronic prescription opiate use (Primary Dx); Chronic pain of multiple joints; Pain management; Psoriatic arthritis (HCC); Primary osteoarthritis of both knees; Rheumatoid arthritis involving both hands with positive rheumatoid factor (HCC) 12/15/2024 4:17 PM EDT - 12/15/2024 11:59 PM EDT Hospital Encounter [facility] [address] [place] [address] Encounter for long-term opiate analgesic use; Encounter for drug screening; Chronic pain of multiple joints Discharge Disposition: Home or Self Care 12/15/2024 4:00 PM EDT Office Visit [facility] [address] [facility], [facility] Sarah Ambrosio APRN - ANTHONY Encounter for drug screening (Primary Dx); Encounter for long-term opiate analgesic use; Chronic pain of multiple joints; Chronic prescription opiate use; Pain management; Psoriatic arthritis (HCC); Primary osteoarthritis of both knees; Rheumatoid arthritis involving both hands with positive rheumatoid factor (HCC) 11/24/2024 Refill [facility] [address] [facility] [place] [address] Sarah Ambrosio APRN - ANTHONY Medication Refill 11/10/2024 2:15 PM EDT Office Visit [facility] [address] [facility] [place] [address] Sarah Ambrosio, CORPORATE COMPLIANCE DIRECTOR - ANTHONY Chronic prescription opiate use (Primary Dx); Chronic pain of multiple joints; Pain management; Psoriatic arthritis (HCC); Primary osteoarthritis of both knees; Rheumatoid arthritis involving both hands with positive rheumatoid factor (HCC) 10/25/2024 Refill [facility] [address] [facility] [place] [address] Rhys Cintron MD Medication Refill from Last 3 Months Family History Medical History Relation Name Comments Parkinsonism Brother Arthritis Father Cancer Father bone Heart Disease Father Heart Failure Father Hypertension Father Other Father bowel disease Cancer Maternal Grandfather Cancer Maternal Grandmother Arthritis Mother Asthma Mother Other Mother urinary inconti nence Cancer Paternal Grandmother Migraines Sister 1 Other Sister 1 breast cancer, MS Anemia Sister 2 Other Sister 2 brain aneurysm, stroke Relation Name Status Comments Brother Father Maternal Grandfather Maternal Grandmother Mother Paternal Grandmother Sister 1 Sister 2 Social History Tobacco Use Types Packs/Day Years [...] Mass Index 28.59 01/12/2025 1:52 PM EDT Plan of Treatment Upcoming Encounters Date Type Department Care Team (Late st Contact Info) Description 02/22/2025 2:00 PM EDT Office Visit [facility] A department of [facility] [address] [place] [address] Sarah Ambrosio, CORPORATE COMPLIANCE DIRECTOR - REPRESENTATIVE [address] [place] [address] 1 m Health Maintenance Due Date Last Done Comments Depression Screen 1975 HIV screen 12/18/1978 Hepatitis C screen 12/18/1981 Diabetes screen 12/18/1998 Lipids 2003 Colonoscopy 12/18/2008 Colorectal Cancer Screen 12/18/2008 FIT/FOBT: Average risk 12/18/2008 Fecal-DNA (Cologuard): Average risk 12/18/2008 Sigmoidoscopy/CT colonography 12/18/2008 Pneumococcal 50+ years Vaccine (2 of 2 - PCV) 12/18/2013 03/21/2011 Shingles vaccine (1 of 2) 12/18/2013 Breast cancer screen 08/20/2014 08/20/2012 COVID-19 Vaccine (4 - 2023-2 5 season) 2024 05/08/2021, 09/26/2020, 08/29/2020 Annual Wellness Visit (Medicare Advantage) 06/01/2024 Flu vaccine (#1) 12/30/2024 03/21/2011 DTaP/Tdap/Td vaccine (2 - Td or Tdap) 01/27/2026 01/28/2016 Respiratory Syncytial Virus (RSV) or age 60 yrs+ (1 - 1-dose 75+ series) 12/18/2038 Pneumococcal 0-49 years Vaccine Discontinued 03/21/2011 Cervical cancer screen Discontinued Pap smear Discontinued 07/26/2012 HPV (without or with Pap) Discontinued Hepatitis A vaccine Aged Out No longe r eligible based on patient's age to complete this topic Hepatitis B vaccine Aged Out No longe r eligible based on patient's age to complete this topic Hib vaccine Aged Out No longer eligi ble based on patient's age to complete this topic Meningococcal (ACWY) vaccine Aged Out No longer eligible based on patient's age to complete this topic Meningococcal B vaccine Aged Out No l onger eligible based on patient's age to complete this topic Polio vaccine Aged Out No longer elig ible based on patient's age to complete this topic Procedures Procedure Name Priority Date/Time Associated Diagnosis Comments PAIN MANAGEMENT DRUG SCREEN Routine 12/15/2024 4:00 PM EDT Encounter for long-term opiate analgesic use Encounter for drug screening Chronic pain of multiple joints MINGO DIGITAL SCREEN W OR WO CAD BILATERAL Routine 08/20/2012 NEUROLOGY SPECIALIST CYTOLOGY Routine 07/26/2012 3:15 PM EST from Last 3 Months or Most Recently Relevant to Health Maintenance Results * (ABNORMAL) Pain Management Drug Screen (12/15/2024 4:00 PM EDT) 6-Acetylmorphine, Ur Not Detected 12/15/2024 4:00 PM EDT [facility] Comment: (NOTE) INTERPRETIVE INFORMATION:6-acetylmorphine, U Positive Cutoff: 20 ng/mL Methodology: Mass Spectrometry 7-Aminoclonazepam, Urine Not Detected 12/15/2024 4:00 PM EDT [facility] Comment: (NOTE) INTERPRETIVE INFORMATION:7-Aminoclonazepam, U Positive Cutoff: 40 ng/mL Methodology: Mass Spectrometry Cebfh-GY-Eniotp, Urine Not Detected 12/15/2024 4:00 PM EDT [facility] Comment: (NOTE) INTERPRETIVE INFORMATION:Gqpzq-SA-Xmgbxynvpj, U Positive Cutoff: 20 ng/mL Methodology: Mass Spectrometry Alprazolam, Urine Not Detected 12/15/2024 4:00 PM EDT [facility] Comment: (NOTE) INTERPRETIVE INFORMATION:Alprazolam, U Positive Cutoff: 40 ng/mL Methodology: Mass Spectrometry Amphetamine, Urine Not Detected 12/15/2024 4:00 PM EDT [facility] Comment: (NOTE) INTERPRETIVE INFORMATION:Amphetamine, U Positive Cutoff: 50 ng/mL Methodology: Mass Spectrometry Barbiturates, Urine Negative 12/15 4:00 PM EDT [facility] Comment: (NOTE) Presumptive negative by immunoassay. Testing by mass spectrometry is available on request. INTERPRETIVE INFORMATION:Barbiturates Screen, U Positive Cutoff: 200 ng/mL Methodology: Immunoassay Benzoylecgonine, Ur Negative 12/15 4:00 PM EDT [facility] Comment: (NOTE) Presumptive negative by immunoassay. Testing by mass spectrometry is available on request. INTERPRETIVE INFORMATION:Cocaine Screen, U Positive Cutoff: 150 ng/mL Methodology: Immunoassay Buprenorphine Urine Not Detected 12/15/2024 4:00 PM EDT [facility] Comment: (NOTE) INTERPRETIVE INFORMATION:Buprenorphine, U Positive Cutoff: 5 ng/mL Methodology: Mass Spectrometry Carisoprodol, Urine Negative 12/15 4:00 PM EDT [facility] Comment: (NOTE) Presumptive negative by immunoassay. Testing by mass spectrometry is available on request. INTERPRETIVE INFORMATION: Carisoprodol Screen, U Positive Cutoff: 100 ng/mL Methodology: Immunoassay The carisoprodol immunoassay has cross-reactivity to carisoprodol and meprobamate. Clonazepam, Urine Not Detected 12/15/2024 4:00 PM EDT [facility] Comment: (NOTE) INTERPRETIVE INFORMATION:Clonazepam, U Positive Cutoff: 20 ng/mL Methodology: Mass Spectrometry Codeine, Urine Not Detected 12/15/2024 4:00 PM EDT [facility] Comment: (NOTE) INTERPRETIVE INFORMATION: Codeine, U Positive Cutoff: 40 ng/mL Methodology: Mass Spectrometry MDA, Urine Not Detected 12/15/2024 4:00 PM EDT [facility] Comment: (NOTE) INTERPRETIVE INFORMATION:MDA, U Positive Cutoff: 200 ng/mL Methodology: Mass Spectrometry Diazepam, Urine Not Detected 12/15/2024 4:00 PM EDT [facility] Comment: (NOTE) INTERPRETIVE INFORMATION:Diazepam, U Positive Cutoff: 50 ng/mL Methodology: Mass Spectrometry Ethyl Glucuronide Ur See Note 12/15/2024 4:00 PM EDT [facility] Comment: (NOTE) Unable to determine the presence of drug in sample by Immunoassay due to interfering substance(s) in the specimen. Recommend confirmation testing by GC/MS and/or LC-MS/MS, additional charges may apply. INTERPRETIVE INFORMATION:Ethyl Glucuronide Screen, U Positive Cutoff: 500 ng/mL Methodology: Immunoassay Fentanyl, Ur Not Detected 12/15/2024 4:00 PM EDT [facility] Comment: (NOTE) INTERPRETIVE INFORMATION:Fentanyl, U Positive Cutoff: 2 ng/mL Methodology: Mass Spectrometry Hydrocodone, Urine Not Detected 12/15/2024 4:00 PM EDT [facility] Comment: (NOTE) INTERPRETIVE INFORMATION:Hydrocodone, U Positive Cutoff: 40 ng/mL Methodology: Mass Spectrometry Hydromorphone, Urine Not Detected 12/15/2024 4:00 PM EDT [facility] Comment: (NOTE) INTERPRETIVE INFORMATION:Hydromorphone, U Positive Cutoff: 20 ng/mL Methodology: Mass Spectrometry Lorazepam, Urine Not Detected 12/15/2024 4:00 PM EDT [facility] Comment: (NOTE) INTERPRETIVE INFORMATION:Lorazepam, U Positive Cutoff: 60 ng/mL Methodology: Mass Spectrometry Marijuana Metab, Ur Presumptive POS(A) 12/15/2024 4:00 PM EDT [facility] Comment: (NOTE) Presumptive positive by immunoassay. Testing by mass spectrometry is available on request. INTERPRETIVE INFORMATION: THC (Cannabinoids) Screen, U Positive Cutoff: 50 ng/mL Methodology: Immunoassay MDEA, RODRICK, Ur Not Detected 12/15/2024 4:00 PM EDT [facility] Comment: (NOTE) INTERPRETIVE INFORMATION:MDEA, U Positive Cutoff: 200 ng/mL Methodology: Mass Spectrometry MDMA, Urine Not Detected 12/15/2024 4:00 PM EDT [facility] Comment: (NOTE) INTERPRETIVE INFORMATION:MDMA, U Positive Cutoff: 200 ng/mL Methodology: Mass Spectrometry Meperidine Metab, Ur Not Detected 12/15/2024 4:00 PM EDT [facility] Comment: (NOTE) INTERPRETIVE INFORMATION:Meperidine metabolite, U Positive Cutoff: 50 ng/mL Methodology: Mass Spectrometry Methadone, Urine Negative 12/16/19 4:00 PM EDT [facility] Comment: (NOTE) Presumptive negative by immunoassay. Testing by mass spectrometry is available on request. INTERPRETIVE INFORMATION: Methadone Screen, U Positive Cutoff: 150 ng/mL Methodology: Immunoassay Methamphetamine, Urine Not Detected 12/15/2024 4:00 PM EDT [facility] Comment: (NOTE) INTERPRETIVE INFORMATION:Methamphetamine, U Positive Cutoff: 200 ng/mL Methodology: Mass Spectrometry Methylphenidate Not Detected 12/15/2024 4:00 PM EDT [facility] Comment: (NOTE) INTERPRETIVE INFORMATION:Methylphenidate, U Positive Cutoff: 100 ng/mL Methodology: Mass Spectrometry Midazolam, Urine Not Detected 12/15/2024 4:00 PM EDT [facility] Comment: (NOTE) INTERPRETIVE INFORMATION:Midazolam, U Positive Cutoff: 20 ng/mL Methodology: Mass Spectrometry Morphine Urine Not Detected 12/15/2024 4:00 PM EDT [facility] Comment: (NOTE) INTERPRETIVE INFORMATION:Morphine, U Positive Cutoff: 20 ng/mL Methodology: Mass Spectrometry Norbuprenorphine, Urine Not Detected 12/15/2024 4:00 PM EDT [facility] Comment: (NOTE) INTERPRETIVE INFORMATION:Norbuprenorphine, U Positive Cutoff: 20 ng/mL Methodology: Mass Spectrometry Nordiazepam, Urine Not Detected 12/15/2024 4:00 PM EDT [facility] Comment: (NOTE) INTERPRETIVE INFORMATION:Nordiazepam, U Positive Cutoff: 50 ng/mL Methodology: Mass Spectrometry Norfentanyl, Urine Not Detected 12/15/2024 4:00 PM EDT [facility] Comment: (NOTE) INTERPRETIVE INFORMATION:Norfentanyl, U Positive Cutoff: 2 ng/mL Methodology: Mass Spectrometry Norhydrocodone, Urine Not Detected 12/15/2024 4:00 PM EDT [facility] Comment: (NOTE) INTERPRETIVE INFORMATION:Norhydrocodone, U Positive Cutoff: 100 ng/mL Methodology: Mass Spectrometry Noroxycodone, Urine Present(A) 12/15 4:00 PM EDT [facility] Comment: (NOTE) INTERPRETIVE INFORMATION:Noroxycodone, U Positive Cutoff: 100 ng/mL Methodology: Mass Spectrometry Noroxymorphone, Urine Present(A) 12/15/2024 4:00 PM EDT [facility] Comment: (NOTE) INTERPRETIVE INFORMATION:Noroxymorphone, U Positive Cutoff: 100 ng/mL Methodology: Mass Spectrometry Oxazepam, Urine Not Detected 12/15/2024 4:00 PM EDT [facility] Comment: (NOTE) INTERPRETIVE INFORMATION:Oxazepam, U Positive Cutoff: 50 ng/mL Methodology: Mass Spectrometry Oxycodone Urine Present(A) 4:00 PM EDT [facility] Comment: (NOTE) INTERPRETIVE INFORMATION:Oxycodone, U Positive Cutoff: 40 ng/mL Methodology: Mass Spectrometry Oxymorphone, Urine Present(A) 2024 4:00 PM EDT [facility] Comment: (NOTE) INTERPRETIVE INFORMATION:Oxymorphone, U Positive Cutoff: 40 ng/mL Methodology: Mass Spectrometry Phencyclidine, Urine Negative 12/15/2024 4:00 PM EDT [facility] Comment: (NOTE) Presumptive negative by immunoassay. Testing by mass spectrometry is available on request. INTERPRETIVE INFORMATION:Phencyclidine Screen, U Positive Cutoff: 25 ng/mL Methodology: Immunoassay Phentermine, Ur Not Detected 12/15/2024 4:00 PM EDT [facility] Comment: (NOTE) INTERPRETIVE INFORMATION:Phentermine, U Positive Cutoff: 100 ng/mL Methodology: Mass Spectrometry Gqqughwyod-E-Fnklty e, Urine Not Detected 12/15/2024 4:00 PM EDT [facility] Comment: (NOTE) INTERPRETIVE INFORMATION:Fgpwkbbzpn-e-Eywq, U Positive Cutoff: 200 ng/mL Methodology: Mass Spectrometry Tapentadol, Urine Not Detected 12/15/2024 4:00 PM EDT [facility] Comment: (NOTE) INTERPRETIVE INFORMATION:Tapentadol, U Positive Cutoff: 100 ng/mL Methodology: Mass Spectrometry Temazepam, Urine Not Detected 12/15/2024 4:00 PM EDT [facility] Comment: (NOTE) INTERPRETIVE INFORMATION:Temazepam, U Positive Cutoff: 50 ng/mL Methodology: Mass Spectrometry Tramadol, Urine See Note 4:00 PM EDT [facility] Comment: (NOTE) Unable to determine the presence of drug in sample by Immunoassay due to interfering substance(s) in the specimen. Recommend confirmation testing by GC/MS and/or LC-MS/MS, additional charges may apply. INTERPRETIVE INFORMATION:Tramadol Screen, U Positive Cutoff: 100 ng/mL Methodology: Immunoassay Zolpidem, Urine Not Detected 12/15/2024 4:00 PM [facility] Comment: (NOTE) INTERPRETIVE INFORMATION:Zolpidem, U Positive Cutoff: 20 ng/mL Methodology: Mass Spectrometry Creatinine, Ur 322.2 20.0 - 400.0 mg/dL 12/15/2024 4:[facility], Hi Res, Ur See Below 12/15/2024 4:00 PM [facility] Comment: (NOTE) Flagging indicates a positive result; not that the result is abnormal. The absence of expected drug(s) and/or drug metabolite(s) may indicate non-compliance, inappropriate timing of specimen collection relative to drug administration, poor drug absorption, diluted/adulterated urine, or limitations of testing. The concentration must be greater than or equal to the cutoff concentration to be reported as present. If specific drug concentrations are required, contact the laboratory within two weeks of specimen collection to request confirmation and quantification by a second analytical technique. Interpretive questions should be directed to the laboratory. Results based on immunoassay detection that do not match clinical expectations should be interpreted with caution. Confirmatory testing by mass spectrometry for immunoassay-based results is available if ordered within two weeks of specimen collection. Additional charges apply. For medical purposes only; not valid for forensic use. EER Pain Mgt Drug Panel, High Res/Emit U See Note 12/15/2024 4:00 PM EDT [facility] Comment: (NOTE) Authorized individuals can access the [facility] Enhanced Report with an [facility] Connect account using the following link. Your local lab can assist you in obtaining the patient report if you don't have a Connect account. [email or web address] Performed By: [facility] [address] [place] [address] Nursing Informatics Clinical Analyst: Marco Oconnor MD, PhD CLIA Number: [id number] Naloxone Urine Not Detected 12/15/2024 4:00 PM EDT [facility] Comment: (NOTE) INTERPRETIVE INFORMATION:Naloxone, U Positive Cutoff: 100 ng/mL Methodology: Mass Spectrometry Gabapentin Not Detected 12/15/2024 4:00 PM EDT [facility] Comment: (NOTE) INTERPRETIVE INFORMATION:Gabapentin, U Positive Cutoff: 3,000 ng/mL Methodology: Mass Spectrometry Pregabalin Not Detected 12/15/2024 4:00 PM EDT [facility] Comment: (NOTE) INTERPRETIVE INFORMATION:Pregabalin, U Positive Cutoff: 3,000 ng/mL Methodology: Mass Spectrometry Fesrs-JY-Plqkyomfv, Urine Not Detected 12/15/2024 4:00 PM EDT [facility] Comment: (NOTE) INTERPRETIVE INFORMATION:Gqnyj-IF-Mqtatmnfz, U Positive Cutoff: 20 ng/mL Methodology: Mass Spectrometry Zolpidem Metabolite (ZCA), Urine Not Detected 12/15/2024 4:00 PM EDT [facility] Comment: (NOTE) INTERPRETIVE INFORMATION:Zolpidem Metabolite, U Positive Cutoff: 100 ng/mL Methodology: Mass Spectrometry Urine 12/15/2024 4:00 PM EDT 12/15/2024 4:28 PM EDT Sarah Ambrosio CORPORATE COMPLIANCE DIRECTOR - REPRESENTATIVE URINE ORDERABLES Lili karen Result [facility] [address] [place] [address] LOCATED WITHIN [facility] [address] [phone] * MINGO Digital Screen Bilateral (08/20/2012) Anatomical Region Laterality Modality Breast Bilateral Mammography Dea Guillermo MD IMG MAMMOGRAPHY ORDERABLES Thad scott * NEUROLOGY SPECIALIST Cytology (07/26/2012 3:15 PM EST) Cytology Report (NOTE) [id number] [facility] [address] [place] [id number] GYNECOLOGIC CYTOLOGY REPORT Patient Name: YOBANI GABRIEL MR#: [id number] Specimen #[id number] Procedure/Addendum HPV Procedure Report Date Ordered: 07/30/2012 Status: Signed Out Date Complete: 07/30/2012 By: ANTONIETTA Gutierrez(ASCP) Date Reported: 08/05/2012 INTERPRETATION CERVISTA HPV DNA High Risk: NOT DETECTED (Reference Range: not detected) Test information: Patients without infection by High-Risk HPV genotypes: 16,18,31,33,35,39, 45,51,52,56,58,59, 66, 68, rarely have precancerous lesions or cancer of the cervix. Note: A negative result does not rule out the presence of an HPV genotype absent from test panel, a low level infection, or specimen sampling error. Final Diagnosis VAGINAL CUFF MATERIAL, ( THIN PREP VIAL): Specimen Adequacy: Satisfactory for evaluation. Descriptive Diagnosis: Negative for intraepithelial lesion or malignancy. Fungal organisms morphologically consistent with Yee species. Comments: Cervista HPV HR test results will follow in approximately 1 week. ANTONIETTA Francisco(ASCP) Electronically Signed Out 07/29/2012 Source: 1: VAGINAL CUFF MATERIAL, ( THIN PREP VIAL) 08/05/2012 12:00 AM EST [facility] 07/26/2012 3:15 PM EST 07/26/2012 3:15 PM EST Dea Guillermo MD PATHOLOGY/CYTOLOGY ORDERABLES Edited Result - Final [facility] from Last 3 Months or Most Recently Relevant to Health Maintenance Insurance [employer] MEDICARE
--- OUTSIDE RECORDS SUMMARY | 2025-01-20 12:50 | XMS_ITS | Encounter Summary ---
[facility] Organization [id number] [address] [place] [address] Care Team Providers Care Practice Consultant Name Role Phone Edilia Del Cid DO, Charles L Primary Care Provider Encounter Details Date Type Department Care Team (Late st Contact Info) Description 07/22/2023 Orders Only [facility] [address] [facility] [address] [place] [address] External, Scanning Provider Social History [...] often do you attend chur ch or yarsani services? 1 to 4 times per year 12/10/2021 Do you belong to any clubs o r organizations such as advent groups, unions, fraternal or athletic groups, or [...] Answer Date Recorded Total Score 0 12/10/2021 [facility] - Occupational Stress [...] Recorded Do you need help finding a [place] [facility] and/or a training program? No [...] Procedure Name Priority Date/Time Associated Diagnosis Comments ECHO COMPLETE WO CONTRAST Routine 08/08/2021 1:01 PM EST documented in this encounter Visit Diagnoses Not on filedocumented in this encounter Additional Health Concerns Assessment Noted Time PHQ-9 Depression Total Score: 0 12/11/19 22 12:34 PM EDT documented as of this encounter Care Teams Practice Consultant Relationship Specialty Start Date End Date Etienne Yeboah Jr., [address] [place] [address] PCP - General Internal Medicine 06/19/17 documented as of this encounter
--- OUTSIDE RECORDS SUMMARY | 2025-01-20 12:50 | XMS_ITS | Encounter Summary ---
[facility] Organization [facility] Address [id number] [address] [place] [address] Care Team Providers Care Waste Reclaimer Name Role Phone Edilia Del Cid DO, Charles L Primary Care Provider Encounter Details Date Type Department Care Team (Late st Contact Info) Description 12/08/2023 Orders Only [facility] [address] [place] [address] Padmaja Ortega CMA Social History Tobacco Use Types Packs/Day Years Used Date Smoking Tobacco: Never Passive Smoke Exposure: Past Smokeless Tobacco: Never Comments:Medical Marijuana. Every night [...] often do you attend chur ch or zoroastrian services? 1 to 4 times per year 12/10/2021 Do you belong to any clubs o r organizations such as christian groups, unions, fraternal or athletic groups, or [...] Answer Date Recorded Total Score 0 12/10/2021 [facility] [place] of Occupat ional Health - Occupational Stress [...] Recorded Do you need help finding a [facility] and/or a training [...] Recent Progress Patient-Stated? Author Home General Yes Valentina, Giuliana, ENRICHMENT ASSISTANT Note: Evaluation of progress towards goal: Home with family support and [facility] documented as of this encounter Visit Diagnoses Not on filedocumented in this encounter Additional Health Concerns Assessment Noted Time PHQ-9 Depression Total Score: 0 12/11/19 22 12:34 PM EDT documented as of this encounter Care Teams Waste Reclaimer Relationship Specialty Start Date End Date Etienne Yeboah Jr., [address] [place] [address] PCP - General Internal Medicine 06/19/17 documented as of this encounter
--- OUTSIDE RECORDS SUMMARY | 2025-01-20 12:50 | XMS_ITS | Encounter Summary ---
Author Organization [facility] Address [id number] [address] [place] [address] Care Team Providers Care Structural Iron Worker Name Role Phone Edilia Del Cid DO, Charles L Primary Care Provider Encounter Details Date Type Department Care Team (Late st Contact Info) Description 08/26/2023 Orders Only [facility] [address] [place] [address] Padmaja Ortega CMA Social History [...] often do you attend chur ch or voodoo services? 1 to 4 times per year 12/10/2021 Do you belong to any clubs o r organizations such as adventist groups, unions, fraternal or athletic groups, or [...] Answer Date Recorded Total Score 0 12/10/2021 [facility] [place] of Occupat ional Health - Occupational Stress [...] Recorded Do you need help finding a [facility] career center and/or a training program? No [...] documented as of this encounter Care Teams Structural Iron Worker Relationship Specialty Start Date End Date Etienne Yeboah Jr., [facility] [place] [address] PCP - General Internal Medicine 06/19/17 documented as of this encounter
--- OUTSIDE RECORDS SUMMARY | 2025-01-20 12:50 | XMS_ITS | Encounter Summary ---
Author Organization [facility] Address [id number] [address] [place] [address] Care Team Providers Care Shrimp Packer Name Role Phone Edilia Del Cid DO, Charles L Primary Care Provider Encounter Details Date Type Department Care Team (Late st Contact Info) Description 09/07/2024 Orders Only [facility] [address] [place] [id number] External, Scanning Provider Social History Tobacco Use [...] often do you attend chur ch or pentecostalism services? 1 to 4 times per year [...] Answer Date Recorded Total Score 0 12/10/2021 [facility] of Occupat ional Health - Occupational [...] Recorded Do you need help finding a [facility] career center and/or a training program? No [...] Procedure Name Priority Date/Time Associated Diagnosis Comments LIPID PROFILE Routine 08/11/2024 8:44 AM EDT MULTIPLE LABS Routine 08/11/2024 8:43 AM EDT documented in this encounter Results * Lipid profile (08/11/2024 8:44 AM EDT) External Cholesterol 155 MANUALLY TRANSCRIBED RESULTS External Cholesterol:Hdl 2.7 MANUALLY TRANSCRIBED RESULTS External Hdl Cholesterol 57 MANUALLY TRANSCRIBED RESULTS External Ldl (Calc) 78 MANUALLY TRANSCRIBED RESULTS External Triglycerides 109 MANUALLY TRANSCRIBED RESULTS External Very Low Lipoprotein 20 MANUALLY TRANSCRIBED RESULTS us Scanning Provider External LAB BLOOD ORDERABLES Edited Result - Final Performing Organization Address City/[facility]/ZIP Co de Phone Number MANUALLY TRANSCRIBED RESULTS * Multiple labs (08/11/2024 8:43 AM EDT) us Scanning Provider External IN IMAGING Final Result MANUALLY TRANSCRIBED RESULTS documented in this encounter Visit Diagnoses Not on filedocumented in this encounter Additional Health Concerns Assessment Noted Time PHQ-9 Depression Total Score: 0 12/11/19 22 12:34 PM EDT documented as of this encounter Care Teams Shrimp Packer Relationship Specialty Start Date End Date Etienne Yeboah Jr., [address] [place] [id number] PCP - General Internal Medicine 06/19/17 documented as of this encounter
--- OUTSIDE RECORDS SUMMARY | 2025-01-20 12:50 | XMS_ITS | Clinical Summary ---
Author Organization [facility] Address [address] [place] [address] Care Team Providers Care Early Childhood Coordinator Name Role Phone Etienne Yeboah MD Primary Care Provider + [phone] Allergies Active Allergy Reactions Criticality Noted Date Comments Bromocriptine Rash Low 10/17/2008 Diltiazem Headache 03/02/2024 Celecoxib Rash Low 10/17/2008 Other Reaction(s): Other (See Comments) Body aches Cephalexin Itching 12/20/2020 Ciprofloxacin GI intolerance,Nause a Only,Unknown,Rash Low 10/17/2008 Other reaction(s): other Body aches Diclofenac GI intolerance,Nause a Only,Rash Low 10/17/2008 Duloxetine Diarrhea,Unknown 11/13/2021 Other Reaction(s): Not available Flu like symptoms Duloxetine Hcl Diarrhea 02/10/2023 Fluticasone Swelling,Unknown,Rash Low 10/17/2008 Other reaction(s): other Dry lips and cracking Jean skin around nose Jean skin around nose Ipratropium-Albuterol Rash Low 10/17/2008 Pt unsure of reaction Meloxicam Hives,Itching,Rash Low 11/13/2021 Other Reaction(s): itch/rash Morphine Nausea And Vomiting,GI intolerance Low 12/20/2020 Other reaction(s): vomiting Sodium Tetradecyl Sulfate Rash Low 12/20/2020 Sulfa Antibiotics Rash Low 05/19/2014 Other Reaction(s): other Other reaction(s): other Sulfamethoxazole-Trimet hoprim Nausea Only,Rash Low 07/20/2012 Tocilizumab Other 02/01/2020 Wound Dressing Adhesive Rash Low 10/17/2008 Medications Cannabinoids (medical cannabis) marijuana (cannabis) PRN Active Calcium Carb-Cholecalc iferol (CALCIUM + D3 PO) Calcium + D3 Active oxyCODONE ER (OxyCONTIN) 20 MG 12 hr tablet take 1 tablet (20MG) by oral route every 12 hours Oral Active albuterol HFA 90 mcg/act inhaler Inhale 2 puffs as needed by inhalation route. Active cyanocobalamin (Vitamin B-12) 1000 MCG/ML injection Inject 1 ml intramuscularly daily for 7 days, then once weekly for 4 weeks, then once monthly. 07/18/19 23 Active guaiFENesin (Mucinex) 600 MG 12 hr tablet Take 600 mg by mouth every 12 (twelve) hours if needed. Active hydroxychloroq uine (Plaquenil) 200 MG tablet Take 1 tablet by mouth in the morning. 05/09/20 22 Active nitroglycerin (Nitrostat) 0.[address] 0.4 mg under the tongue. Active spironolactone (Aldactone) 100 MG tablet Take 1 tablet every day by oral route for 90 days. Active Active Problems No known active problems Social History Tobacco Use Types Packs/Day Years Used Date Smoking Tobacco: Never Smokeless Tobacco: Never Tobacco Cessation:Counseling Given: Not Answered Alcohol Use Standard Drinks/Week Comments Yes 0 (1 standard drink = 0.6 oz pur e alcohol) Comments Unknown Sex and Gender Information Value Date Recorded Sex Assigned at Female 02/03/2023 1:11 PM EDT Legal Sex Female 7:17 PM EDT Gender Identity Female 02/03/2023 1:11 PM EDT Sexual Orientation Straight 02/03/2023 1: 11 PM EDT Last Filed Vital Signs Vital Sign Reading Time Taken Comments Blood Pressure 123/77 06/13/2022 12:00 PM EST Pulse - - Temperature - - Respiratory Rate - - Oxygen Saturation - - Inhaled Oxygen Concentration - - Weight 86.6 kg (191 lb) 03/02/2024 3:09 PM EDT Height 172.7 cm (5' 8 ) 03/02/2024 3:09 PM EDT Body Mass Index 29.04 03/02/2024 3:09 PM EDT Plan of Treatment Upcoming Encounters Date Type Department Care Team (Late st Contact Info) Description 03/02/2026 10:00 AM EDT [facility] [address] [place] [address] Blayne Mina PA [address] [place] [address] Health Maintenance Due Date Last Done Comments [facility] Colonography 1963 Colonoscopy 1963 Colorectal Cancer Screening 1965 FIT-DNA 1965 FIT 1963 FOBT 1965 Sigmoidoscopy 1965 HPV/Cotest 12/18/1993 Mammogram 08/20/2013 08/20/2012, 08/20/2012 Cervical Cancer Screening 07/26/2015 Pap Smear 07/26/2015 07/26/2012 Influenza Vaccine (#1) 2025 03/21/2011 Insurance [employer] MEDICARE ADVANTAGE Care Teams Early Childhood Coordinator Relationship Specialty Start Date End Date Etienne Yeboah MD [address] [place] [address] PCP - General 02/03/23
--- NOTE | 2025-01-20 13:20 | MM_ITS ---
Patient Name: YOBANI GABRIEL MR#: [id number] : 1965 Exam Date: 01/20/2025 Ordering Doctor: DR NICHO YIN D.O. RADIOLOGY REPORT PROCEDURE: MM TOMOSYNTHESIS SCREENING BI COMPARISON: MG MAMM SCREEN 3D HOLLY CAD, 09/13/2020. MG MAMM HOLLY DIAG W CAD, 06/29/2019. MG MAMM HOLLY SCRN W CAD DIG, 05/06/2016. INDICATIONS: screening for malignant neoplasm of breast Calculator Name NCI Breast Cancer Risk Assessment Tool 5 Year Breast Cancer Risk 3.20% Lifetime Breast Cancer Risk 14.80% Personal Breast Cancer No Personal Ovarian Cancer Yes, Total hysterectomy Treatments None Family Cancers Sister with breast cancer at age 51; Father with bone cancer at age 70; Mother with lung cancer at age 76; Grandmother-maternal with breast cancer at age 70; Grandfather-maternal with throat cancer at age 70; Sister with skin cancer at age 50. LOCATION: [facility] BREAST COMPOSITION: There are scattered areas of fibroglandular density. FINDINGS: DIAGNOSTIC CATEGORY 1--NEGATIVE. RIGHT BREAST: No significant suspicious finding. LEFT BREAST: No significant suspicious finding. RECOMMENDATIONS: ROUTINE MAMMOGRAM AND CLINICAL EVALUATION IN 12 MONTHS. Dictated by: Sriram Lancaster MD on 01/20/2025 at 15:03 Approved by: Sriram Lancaster MD on 01/20/2025 at 15:04
== END 2025-01-20 12:41 | disposition home or self-care (01) ==
PROVIDERS: PCP Internal Medicine; Visit Provider Internal Medicine
DX: Z12.31 Encounter for screening mammogram for malignant neoplasm of breast (principal); Z78.0 Asymptomatic menopausal state; Z80.3 Family history of malignant neoplasm of breast; Z80.8 Family history of malignant neoplasm of other organs or systems; Z80.1 Family history of malignant neoplasm of trachea, bronchus and lung; M85.88 Other specified disorders of bone density and structure, other site
CPT/HCPCS: 77063; 77067; 77080